=== PATIENT | male | born 1995 | race Two or more races ===

== ENCOUNTER 2020-04-08 22:48 | Emergency (ER) | payer MEDICAID, OTHER ==
[2020-04-08] MEDS ORDERED: POLYMYXIN B/TRIMETH OPHTH DROPS EACHEYE STA (23:48)
--- NOTE | 2020-04-08 23:57 | ED Physician Documentation ---
PD HPI OPHTHO - Stated complaint Stated Complaint: EYE PX - Chief complaint Chief Complaint: Heent - History obtained from History obtained from: Patient - History of Present Illness Timing - onset: Today Pain level max: 6 Pain level now: 6 Location: Both Quality / character: Itching, Burning Associated symptoms: Redness, Tearing, FB sensation, Photophobia Contributing factors: Work related (patient is a [employer] and says some material may have floated into his eyes today. It started to gradually hurt Over the course of the day and has been constant.) Similar symptoms before: No: Has not had sx before Recently seen: Not recently seen - Treatment prior to arrival Treatment prior to arrival: lubricating eye drops Review of Systems Eyes: reports: Photophobia, Irritation PD PAST MEDICAL HISTORY - Past Medical History Past Medical History: Yes Cardiovascular: None Respiratory: Asthma Neuro: None Endocrine/Autoimmune: None GI: None : None HEENT: None Psych: None Musculoskeletal: None Derm: Other drug resistant infections - Past Surgical History Past Surgical History: No - Present Medications Home Medications: Ambulatory Orders Medication Instructions Recorded Confirmed No Known Home Medications 12/29/12 12/29/12 - Allergies Allergies/Adverse Reactions: Allergies Allergy/AdvReac Type Severity Reaction Status Date / Time No Known Drug Allergies Allergy Verified 04/08/20 22:56 - Social History Does the pt smoke?: No Smoking Status: Never smoker Does the pt drink ETOH?: Yes Does the pt have substance abuse?: No - Immunizations Immunizations are current?: Yes - POLST Patient has POLST: No PD ED PE NORMAL - Vitals Vital signs reviewed: Yes - General General: Alert and oriented X 3 - HEENT HEENT: PERRL, EOMI, Other (mild conjunctival injection bilaterally. fluorescein test with 1mm corneal abrasion to L eye at 3 oclock position and 1mm corneal brasion to R eye at 9 oclock position. no foreign body. eyelid eversion without foreign body) Results - Vitals Vitals: Vital Signs - 24 hr 04/08/20 22:54 Temperature 36.5 C Heart Rate 84 Respiratory 19 Rate Blood Pressure 147/88 H O2 Saturation 98 Oxygen O2 Source Room air PD MEDICAL DECISION MAKING - ED course Complexity details: d/w patient ED course: 25-year-old male presents with corneal Abrasions to both eyes that likely occurred today during work. Antibiotic eyedrops given to him in the emergency department. Strict return precautions given. Follow-up with primary doctor Departure - Departure Disposition: 01 Home, Self Care Clinical Impression: Corneal abrasion of both eyes Condition: Good Instructions: ED Eye Injury Corneal Abrasion Comments: You have been seen in the emergency department for a scratch to the superficial surface of your eye (cornea). It is important to use these antibiotic eyedrops 4 times a day in both eyes for 5 days to prevent infection. Your visual acuity was normal. Return to the ED for any new or worsening symptoms. Follow-up with your primary doctor
[2020-04-09 00:02] VITALS: BP 140/85
== END 2020-04-09 | disposition home or self-care (01) ==
LOC: ED 22:48
DX: S05.02XA Injury of conjunctiva and corneal abrasion without foreign body, left eye, initial encounter (principal); S05.01XA Injury of conjunctiva and corneal abrasion without foreign body, right eye, initial encounter; X58.XXXA Exposure to other specified factors, initial encounter; Y92.79 Other farm location as the place of occurrence of the external cause; Y99.0 Civilian activity done for income or pay
CPT/HCPCS: 99282; 99283; A9270

== ENCOUNTER 2020-06-10 19:26 | Outpatient (CLI) | payer MEDICAID | END 2020-06-10 19:27 | disposition home or self-care (01) | LOC: COV 19:26 | PROVIDERS: ATTEND Family Medicine | DX: Z20.822 Contact with and (suspected) exposure to COVID-19 (principal) ==

== ENCOUNTER 2020-07-13 21:44 | Outpatient (CLI) | payer MEDICAID | END 2020-07-13 21:45 | disposition home or self-care (01) | LOC: COV 21:44 | PROVIDERS: ATTEND Family Medicine | DX: R50.9 Fever, unspecified (principal); R19.7 Diarrhea, unspecified; Z20.822 Contact with and (suspected) exposure to COVID-19 ==

== ENCOUNTER 2021-08-08 06:34 | Emergency (ER) | payer MEDICAID ==
[2021-08-08 06:45] VITALS: BP 160/83
[2021-08-08] MEDS ORDERED: TETANUS/DIPHTHERIA/PERTUSSIS 0.5 ML SYRINGE IM ONE (06:52)
--- NOTE | 2021-08-08 07:06 | ED Physician Documentation ---
PD HPI UPPER EXT INJURY - Stated complaint Stated Complaint: RT HAND INJ - Chief complaint Chief Complaint: Ext Problem - History obtained from History obtained from: Patient - History of Present Illness Location: Right, Hand Type of injury: Blunt / blow Where injury occurred: Home Timing - onset: How many days ago (2) Timing - duration: Days (2) Timing - details: Abrupt onset, Still present Improved by: Rest, Ice, Immobilization Worsened by: Moving, Palpating Associated symptoms: Swelling, Discolored. No: Weakness, Numbness, Tingling Contributing factors: No: Anticoagulated Similar symptoms before: Diagnosis (hand contusion) Recently seen: Not recently seen - Additonal information Additional information: Previously well 26-year-old male punched a solid wooden door 2 days ago and significant pain to his hand and knuckles. He purchased a splint at [employer] and continue to work detailing cars. His hand is swollen a bit more and is more painful and he has come to the emergency department this morning for evaluation. He had a prior injury to this hand with a dislocation of the fifth digit at the PIP joint. Review of Systems Constitutional: denies: Fever Respiratory: denies: Cough GI: denies: Vomiting, Diarrhea PD PAST MEDICAL HISTORY - Past Medical History Past Medical History: Yes Cardiovascular: None Respiratory: Asthma Neuro: None Endocrine/Autoimmune: None GI: None : None HEENT: None Psych: None Musculoskeletal: None Derm: Other drug resistant infections - Past Surgical History Past Surgical History: No - Present Medications Home Medications: Ambulatory Orders Medication Instructions Recorded Confirmed Amoxicillin 500 mg PO BID 08/08/21 08/08/21 - Allergies Allergies/Adverse Reactions: Allergies Allergy/AdvReac Type Severity Reaction Status Date / Time No Known Drug Allergies Allergy Verified 08/08/21 06:45 - Social History Does the pt smoke?: No Smoking Status: Never smoker Does the pt drink ETOH?: Yes Does the pt have substance abuse?: No - Immunizations Immunizations are current?: Yes - POLST Patient has POLST: No PD ED PE NORMAL - Vitals Vital signs reviewed: Yes (Hypertensive mild) - General General: Alert and oriented X 3, No acute distress, Well developed/nourished - HEENT HEENT: Atraumatic, PERRL, EOMI - Respiratory Respiratory: No respiratory distress - Derm Derm: Normal color, Warm and dry, No rash - Extremities Extremities: Other (The right hand is swollen and there is ecchymosis to the palm in the center of the hand. There is no specific tenderness over the fifth distal metacarpal and there is no tenderness at the PIP joint of the fifth digit there is tenderness at the base of the fifth metacarpal. wrist full rom.) - Neuro Neuro: Alert and oriented X 3, No motor deficit, No sensory deficit, Normal speech Eye Opening: Spontaneous Motor: Obeys Commands Verbal: Oriented GCS Score: 15 - Psych Psych: Normal mood, Normal affect Results - Vitals Vitals: Vital Signs - 24 hr 08/08/21 06:37 Temperature 36.5 C Heart Rate 79 Respiratory 18 Rate Blood Pressure 160/83 H O2 Saturation 99 Oxygen O2 Source Room air - Rads (name of study) hand Radiology: Prelim report reviewed (Impression: No acute bony abnormality. Small chronic appearing fracture fragment closely adjacent to the dorsal base of the fifth metacarpal.), EMP read indepedently, See rad report Procedures - Splint (location) right hand Splint applied by: Tech Type of splint: Fiberglass, Ulnar gutter Other: Patient tolerated well, No complications, Neurovascular intact, Good alignment PD MEDICAL DECISION MAKING - ED course Complexity details: reviewed results, re-evaluated patient, considered differential, d/w patient, d/w family ED course: 26-year-old male having punched a wall does not have a distal fifth metacarpal fracture. He does have some tenderness in general to his hand and swelling he also does have specific point tenderness at the base of the fifth metacarpal where there is an appearance on the x-ray of a chip fracture that actually appears chronic. We placed the patient into a ulnar gutter splint and I am expecting him to have improvement in his within 1 to 2 weeks. Departure - Departure Disposition: 01 Home, Self Care Clinical Impression: Contusion of right hand Qualifiers: Encounter type: initial encounter Qualified Code(s): S60.221A - Contusion of right hand, initial encounter Condition: Stable Instructions: ED Sprain Hand Follow-Up: Jose Crump MD [Provider Admit Priv/Credential] - Comments: Cleo, today it looks like you have a small chip fracture from the proximal fifth metacarpal. We placed you into a ulnar gutter splint and you may need to wear this for 1 to 2 weeks. If you continue to have a problem with his hand I have given you the number of an orthopedic surgeon to follow-up with.
--- NOTE | 2021-08-08 08:51 | XRAY Report ---
PROCEDURE: Hand 3 View RT INDICATIONS: hand pain after punching door TECHNIQUE: 3 views of the hand(s) acquired. COMPARISON: None available FINDINGS: Bones: There are chip avulsion fracture noted at the volar surface of the base of the fifth middle ph alanx. Additional probable 2 mm ossicle noted base of the fifth metacarpal. Normal bone mineralizatio n. Soft tissues: No suspicious soft tissue calcifications. Dorsal soft tissue swelling noted. IMPRESSION: 1. Chip avulsion fracture, base of the fifth middle phalanx. Correlate with point tenderness Reviewed by: Neo Trinh MD on 08/08/2021 7:50 AM THI Approved by: Neo Trinh MD on 08/08/2021 7:50 AM AKDT Station ID: [id number]
== END 2021-08-08 07:58 | disposition home or self-care (01) ==
LOC: ED 06:34
DX: S60.221A Contusion of right hand, initial encounter (principal); S62.626A Displaced fracture of middle phalanx of right little finger, initial encounter for closed fracture; W22.09XA Striking against other stationary object, initial encounter; Y92.009 Unspecified place in unspecified non-institutional (private) residence as the place of occurrence of the external cause
CPT/HCPCS: 29125; 90471; 99282; 99283